=== PATIENT | male | born 1990 | race Caucasian/White ===

== ENCOUNTER 2020-10-09 05:41 | Day surgery (SDC) | payer OTHER ==
[~2020-10-09] VITALS: Ht 167.6 cm; Wt 88.0 kg
--- NOTE | 2020-10-09 06:03 | NUR ---
PT WAS SWABBED FOR COVID 19 FULL PPE DONNED
[2020-10-09] MEDS ORDERED: ALLERGY RELIEF10 MG PO (06:28)
[2020-10-09] MEDS ORDERED: MELATONIN1 MG PO (06:29)
[2020-10-09] MEDS ORDERED: MIRTAZAPINE7.5 MG PO (06:30)
--- NOTE | 2020-10-09 08:39 | NUR ---
10/09/20 0839 [address] [place] 0834- PT ARRIVES TO PACU NONAROUSABLE TO NOXIOUS STIMULI. RESP EVEN AND UNLABORED. OXYGEN SAT HIGH 90'S TO 100% ON 10L VIA MASK. 0838- OXYGEN TITRATED DOWN TO 6L VIA MASK. PT IS AROUSABLE TO VOICE, DOES NOT FOLLOW COMMANDS OR ANSWER QUESTIONS. PT FALLS RIGHT BACK TO SLEEP WHEN NOT BEING TALKED TO.
[2020-10-09] MEDS ORDERED: IBUPROFEN600 MG PO (08:43)
[2020-10-09] MEDS ORDERED: ACETAMINOPHEN500 MG PO (08:43)
[2020-10-09] MEDS ORDERED: HYDROCODON-ACE1 EA10 PO (08:43)
--- NOTE | 2020-10-09 09:29 | NUR ---
0925 PT. ARRIVED AWAKE, 2 GUARDS PRESENT, PT. RATES PAIN 5/10, NO NAUSEA. RIGHT LOWER QUAD DRSG C/D/I. PT. RESITNG CALM GIVEN WATER AND PUDDING.
--- NOTE | 2020-10-09 09:59 | NUR ---
1000 PT. RESTING CALM WATCHIG TV, SNACK PROVIDED, GUARDS PRESENT AT BS.
--- NOTE | 2020-10-09 10:32 | NUR ---
1030 IV D/C'D, DISCHARGE INST. GIVEN, PT. DENIES QUESTIONS, PAPERWORK GIVEN TO GUARDS.
--- NOTE | 2020-10-09 13:52 | OR ---
[facility] [address], [place] [address] Signed DATE OF OPERATION: 10/09/2020 SURGEON: Barb Lincoln MD PREOPERATIVE DIAGNOSIS: Left inguinal hernia (painful). POSTOPERATIVE DIAGNOSES: 1. Left inguinal hernia (direct). 2. Large cord lipoma. PROCEDURES: 1. Left inguinal hernia repair with implantation of Prolene mesh underlay technique. 2. Excision of cord lipoma. ANESTHESIA: General endotracheal; Barb Rodriguez CRNA and local 0.25% Marcaine with epinephrine. INDICATION: This 30-year-old man is a prisoner at [facility] and referred by Dayday Nieto, nurse practitioner for consideration of a bulge and pain in the left groin area. An ultrasound was performed of the left groin (though paperwork described right side) confirming an inguinal hernia. Clinical examination shows indeed a left inguinal hernia, which is reducible. Since it is painful and progressive, he has been recommended for repair. The risks of bleeding, infection, recurrence and so forth were reviewed with him in detail. He understands and wished to proceed. FINDINGS: Relatively sizable cord lipoma was noted. This was excised. The hernia defect was a direct-type defect. Implantation of Prolene mesh in an underlay technique allowed for repair of the defect. There were no complications. DESCRIPTION OF PROCEDURE: The patient was brought to the operating room, given a general endotracheal anesthetic. The lower abdomen was clipped and prepared with chlorhexidine solution and draped sterilely. Preoperative antibiotic Ancef was given. Sequential compression device stockings were used. A small incision was made along the line of skin tension in the left groin area. Dissection carried through the subcutaneous tissue with electrocautery. The external oblique was identified. External oblique was incised along its fibers revealing the underlying cord structures. The cord was mobilized from Electronically Signed By: BARB LINCOLN MD 10/09/20 1352 PATIENT NAME: BARB HUGHES OPERATIVE REPORT DATE OF : [birth year] REPORT #: [id number] PHYSICIAN: BARB LINCOLN MD PCP: DAYDAY NIETO NP REPORT IS CONFIDENTIAL AND NOT TO BE RELEASED WITHOUT AUTHORIZATION [facility] [address], [place] [address] Signed the floor with blunt electrocautery dissection and encircled with a Rachell drain. An attenuated floor of the inguinal canal consistent with direct hernia was noted. The bulky cord itself was dissected and found not to have an indirect hernia sac, but rather a relatively sizable cord lipoma. This was dissected free and secured at its origin with 2 hemostats, divided and passed for pathology. The pedicles were secured with 2-0 Vicryl ties. The attenuated fibers of the fascia of the transversalis were incised with electrocautery. An Allis clamp was applied to the proximal portion of the tendon of the transversus abdominis. The segment of Prolene mesh was cut to an elliptical configuration and secured in an underlay technique with interrupted 2-0 Prolene sutures. The defect was cut in the graft laterally to accommodate the cord structures. The tails of the graft were secured laterally with all due care. 20 mL of 0.25% Marcaine with epinephrine was injected locally. The cord was placed in the canal and the external oblique reapproximated with running 2-0 Vicryl. Tammi layer was reapproximated with interrupted 2-0 Vicryl after irrigation. The skin was closed with running subcuticular 3-0 Vicryl. Steri-Strips were applied as was a silver sponge dressing. The patient tolerated procedure well. BLOOD LOSS: Minimal. COMPLICATIONS: None. MD BRENDA Damon/AMIRAL /[id number] cc: Maurice Grewal NP EOCI Copies: Electronically Signed By: BARB LINCOLN MD 10/09/20 1352 PATIENT NAME: RANI HALLBARB OPERATIVE REPORT DATE OF : [birth year] REPORT #: [id number] PHYSICIAN: BARB LINCOLN MD PCP: DAYDAY NIETO NP REPORT IS CONFIDENTIAL AND NOT TO BE RELEASED WITHOUT AUTHORIZATION [facility] [address] [place] [id number] Signed ~ Electronically Signed By: BARB LINCOLN MD 10/09/20 1352 PATIENT NAME: BARB HUGHES OPERATIVE REPORT DATE OF : [birth year] REPORT #: [id number] PHYSICIAN: BARB LINCOLN MD PCP: DAYDAY NIETO NP REPORT IS CONFIDENTIAL AND NOT TO BE RELEASED WITHOUT AUTHORIZATION
--- NOTE | 2020-10-14 12:07 | PATH ---
[facility] [address], [place] [address] Signed SPECIMEN(S): A LEFT CORD LIPOMA SPECIMEN SOURCE: A. LEFT CORD LIPOMA CLINICAL HISTORY: Left inguinal hernia repair. FINAL PATHOLOGIC DIAGNOSIS: Left cord lipoma, excision: - Lipoma. NAL:cml:C2NR MICROSCOPIC EXAMINATION: Histologic sections of all submitted blocks are examined by light microscopy. These findings, together with the gross examination, support the pathologic diagnosis. GROSS DESCRIPTION: The specimen, labeled "JG, left cord lipoma," is received in formalin and consists of yellow-gray, soft, smooth fibroadipose tissue fragment that measures 5.0 x 2.5 x 1.5 cm. Specimen is inked. Sectioning through the specimen reveals regular adipose tissue surrounded with a thin capsule. Pit Operator sections are submitted in cassettes (A1-A2). JS (under the direct supervision of a pathologist) The Gross Description was prepared using a voice recognition system. The report was reviewed for accuracy; however, sound-alike word errors, addition and/or deletions may occur. If there is any question about this report, please contact Client Services. PERFORMING LABORATORY: The technical component was performed by [facility], [address] [place] [address] (Reheater Helper: Nataly Carrero MD; CLIA# [id number]). [facility] [address] [address] (CLIA# [id number]). Diagnostician: Milka Sharif MD Pathologist Electronically Signed 10/14/2020 PATIENT NAME: BARB HUGHES PATHOLOGY DATE OF : [birth year] REPORT #: [id number] PHYSICIAN: [facility] PCP: LEIGHA NIETO NP REPORT IS CONFIDENTIAL AND NOT TO BE RELEASED WITHOUT AUTHORIZATION [address] [address] Signed Copies: ~ PATIENT NAME: BARB HUGHES PATHOLOGY DATE OF : [birth year] REPORT #: [id number] PHYSICIAN: [facility] PCP: LEIGHA NIETO NP REPORT IS CONFIDENTIAL AND NOT TO BE RELEASED WITHOUT AUTHORIZATION
== END 2020-10-09 10:30 | disposition home or self-care (01) ==
LOC: OPS 05:41 → DS 05:41 → OPS 06:45
PROVIDERS: ATTEND Surgery
PROC: 0YU60JZ Supplement Left Inguinal Region with Synthetic Substitute, Open Approach (ICD-10-PCS; principal; 2020-10-09 06:45)
DX: K40.90 Unilateral inguinal hernia, without obstruction or gangrene, not specified as recurrent (principal); D17.6 Benign lipomatous neoplasm of spermatic cord; Z20.822 Contact with and (suspected) exposure to COVID-19
CPT/HCPCS: 00830; 80053; 82247; 82465; 83615; 84100; 84478; 84550; 85025; C1781; C9803; J0330; J0690; J1100; J1644; J1885; J2250; J2405; J2704; J2765; J3010; J7121; U0003